=== PATIENT | female | born 1985 | race Caucasian/White ===

== ENCOUNTER 2018-05-25 15:28 | Outpatient (CLI) | payer BC ==
[~2018-05-25] VITALS: Ht 165.1 cm; Wt 96.8 kg
[2018-05-25 15:35] VITALS: BP 130/82; PULSE 70; TEMP 98
--- NOTE | 2018-05-25 15:35 | NUR ---
Presents to labor and delivery. Says has been having contractions today. Assessment done, questions offered and answered.
[2018-05-25] MEDS ORDERED: PRENATAL (15:52)
[2018-05-25 16:15] VITALS: BP 123/75; PULSE 78
[2018-05-25 17:00] VITALS: BP 133/79; PULSE 71
--- NOTE | 2018-05-25 17:00 | NUR ---
Back from walking in the unit. States feeling some contractions. Father of the baby at bedside.
--- NOTE | 2018-05-25 17:30 | NUR ---
1800 Discharge instructions given, verbalizes understanding. Dismissed to home with significant other. Alert, stable.
[2018-05-27] MEDS ORDERED: MOTRIN 800800 MG/TAB PO (07:32)
== END 2018-05-25 18:00 | disposition home or self-care (01) ==
LOC: LDRO 15:28
DX: O62.9 Abnormality of forces of labor, unspecified (principal); Z3A.40 40 weeks gestation of pregnancy